=== PATIENT | female | born 1965 | race Caucasian/White ===

== ENCOUNTER 2016-09-05 12:26 | Emergency (ER) | payer OTHER ==
[2016-09-05 12:53] VITALS: BP 134/47; PULSE 91; RESP 18; TEMP 97.7; O2SAT 98
--- NOTE | 2016-09-05 14:07 | UCPHY ---
H & P Time Seen by Provider: 09/05/16 14:04 Patient Type: New HPI/ROS: HPI: 51-year-old female presents to urgent care with chief concern sore throat. Reports sore throat and cough onset 3 days ago. Denies fever, chills, dysphagia, shortness of breath, chest pain, abdominal pain, nausea, vomiting, diarrhea. Has used [id number] cold medicine with some improvement. ROS:10 point review of systems is negative other than as stated in HPI Smoking Status: Never smoked Physical Exam: Vital signs stable, reviewed by me General: Awake, alert, calm, cooperative. No apparent distress. EENT: PERRLA, EOMI. Conjunctiva mildly TMs intact, without redness or bulging. Nasal mucosa is erythematous without discharge. Pharynx mildly erythematous. No tonsillar abscess or exudates. Uvula midline. No drooling. No trismus. No frontal or maxillary tenderness to palpation. Neck: Supple, nontender, no lymphadenopathy. Respiratory: Breathing unlabored. Lungs clear to auscultation bilaterally. CV: Heart rate regular. No murmur, rub, or gallop. GI: Abdomen soft, nontender. Bowel sounds positive x4 quadrants. : Deferred Skin: Warm, dry, intact. No rashes present. Musculoskeletal: Full ROM all extremities. Neuro: Alert oriented x3. Constitutional: Initial Vital Signs Temperature (C) 36.5 C 09/05/16 12:51 Heart Rate 91 09/05/16 12:51 Respiratory Rate 18 09/05/16 12:51 Blood Pressure 134/47 H 09/05/16 12:51 O2 Sat (%) 98 09/05/16 12:51 O2 Delivery Mode Room Air Allergies/Adverse Reactions: No Known Allergies Allergy (Verified 09/05/16 12:51) Home Medications: Medication Instructions Recorded Duloxetine HCl [Cymbalta] 120 DAILY 03/30/12 Levothyroxine [Synthroid 175 mcg 175 mcg DAILY 03/30/12 (RX)] Medical Decision Making ED Course/Re-evaluation: Rapid strep negative. Patient nontoxic. No dysphagia. - Data Points Laboratory Results: 09/05/16 09/05/16 Unknown 12:48 Group A Strep Screen NEGATIVE (NEGATIVE) Group A Strep DNA Pending Departure - Departure Disposition: Home, Routine, Self-Care Clinical Impression: Viral pharyngitis Condition: Good Instructions: Pharyngitis (ED) Additional Instructions: Plan: You have pharyngitis-a throat infection. This is likely caused by a virus. Your rapid strep test was negative. We did send a strep DNA test and will notify you of the results in 3 days if positive for strep. Drink plenty of fluids. You may use 600 mg of ibuprofen every 6 hours for fever, inflammation, or pain. Always take ibuprofen with food and stay well hydrated while taking. Do not exceed the maximum allowable dose in a 24 hour period which is 2400 mg. You may use 650mg of Tylenol every 8 hours. This may be staggered with the ibuprofen. Do not exceed the maximum dose in a 24 hour period which is 3 GM or 3000 mg. Cepacol lozenges or spray [id number] Followup urgently if you develop vomiting, stiff neck, difficulty swallowing, inability to keep down fluids. Otherwise followup with PCP within 3-5 days. Gargle with warm salt water three times daily. - PQRS PQRS Measurement: Not applicable
== END 2016-09-05 14:09 | disposition home or self-care (01) ==
LOC: CED 12:26
DX: J02.8 Acute pharyngitis due to other specified organisms (principal)
CPT/HCPCS: 87880-PO; 99203-PO; G0463-PO